=== PATIENT | female | born 1980 | race African-American/Black ===

== ENCOUNTER 2021-03-23 05:38 | Inpatient (IN) | payer OTHER ==
[~2021-03-23] VITALS: Ht 170.2 cm; Wt 95.7 kg
[~2021-03-23 05:38] MED LIST: ALBU6.7H11 INH; AZIT250T12 MT; DEXA4TAB69 MT
[2021-03-23] MEDS ORDERED: ACETAMINOPHEN 325MG TABLET PO STA (06:54)
[2021-03-23 07:29] LABS: BASOPHILS % 0.4 % (0.0-2.0); HEMATOCRIT. 36.5 % (36.0-48.0); HEMOGLOBIN. 12.5 g/dL (12.0-16.0); MEAN CORPUSCULAR HEMOGLOBIN 28.5 pg (28.0-32.0); MEAN PLATELET VOLUME 7.4 fl (7.4-10.4); MONOCYTES % 6.6 % (2.0-8.0); PLATELET 172 x1000/uL (130-400); RED CELL DISTRIBUTION WIDTH 12.7 % (11.6-14.6)
[2021-03-23 07:35] LABS: CHLORIDE 106 mEq/L (98-107)
[2021-03-23 07:44] LABS: CREATINE KINASE 131 IU/L (26-192); D-DIMER 1.29 mg/L FEU (<0.50)
[2021-03-23 08:01] LABS: BG BASE EXCESS -0.5 mmol/L (-2.0-2.0); BG CARBOXYHEMOGLOBIN 0.1 % (0.5-1.5); BG DEOXYHEMOGLOBIN 1.9 % (0.0-5.0); BG FRACTION INSPIRED OXYGEN 28; BG HCO3 ACT 22.5 mmol/L (22.0-26.0); BG METHEMOGLOBIN 0.3 % (0.0-1.5); BG OXYGEN SATURATION 98.1 % (92.0-98.5); BG OXYHEMOGLOBIN 97.7 % (94.0-97.0); BG PH 7.464 (7.350-7.450); BG PO2 105.8 mmHg (75.0-100.0); BG SAMPLE SITE LEFT RADIAL; BG VENT MODE NASAL CANNULA
[2021-03-23] MEDS ORDERED: CEFTRIAXONE 1 G PREMIX 50 ML IV ONE (08:45)
[2021-03-23] MEDS ORDERED: DEXAMETHASONE 10 MG/ML VIAL IV ONE (08:45)
[2021-03-23] MEDS ORDERED: AZITHROMYCIN 500 MG in DEXT 5% WATER 250 ML IV SCH (08:45)
[2021-03-23 09:36] LABS: HCG SCREEN NEGATIVE
[2021-03-23] MEDS ORDERED: MAGNESIUM/ALUMINUM HYDROXIDE/SIMETHICONE 30ML UDC PO PRN (10:30)
[2021-03-23] MEDS ORDERED: CLONIDINE 0.1MG TABLET PO PRN (10:30)
[2021-03-23] MEDS ORDERED: NITROGLYCERIN 0.4MG TABLET SL SL PRN (10:30)
[2021-03-23] MEDS ORDERED: ONDANSETRON HCL 4MG/2ML INJ IV PRN (10:30)
[2021-03-23] MEDS ORDERED: DOCUSATE SODIUM 100MG CAPSULE PO PRN (10:30)
[2021-03-23] MEDS ORDERED: NA PHOS,M-B/NA PHOS,DI-BA ENEMA 118ML PR PRN (10:30)
[2021-03-23] MEDS ORDERED: GUAIFENESIN 200MG/10ML SUGAR FREE UDC PO PRN (10:30)
[2021-03-23] MEDS ORDERED: ALBUTEROL 6.7GM HFA INHALER ORI PRN (10:30)
[2021-03-23] MEDS: CHOLECALCIFEROL (D3) 1000 UNIT TABLET PO SCH (11:00)
[2021-03-23] MEDS: GUAIFENESIN/DM 600MG/30MG ER TAB 12HR PO SCH ×2 (11:23→21:07)
[2021-03-23] MEDS: FAMOTIDINE 20MG TABLET PO SCH ×2 (11:24→21:07)
[2021-03-23] MEDS: ZINC SULFATE 220 MG ( 50 ) CAPSULE PO SCH (11:25)
[2021-03-23] MEDS: ENOXAPARIN 40MG/0.4ML SYR SUBCUT SCH (11:27)
[2021-03-23] MEDS: ASCORBIC ACID 500 MG TABLET PO SCH ×2 (11:28→21:07)
[2021-03-23 12:14] LABS: FOLIC ACID (FOLATE) SERUM >20 ng/mL ng/mL (>5.38)
[2021-03-23 12:24] LABS: VITAMIN B12 SERUM 1055 pg/mL (211-911)
[2021-03-23] MEDS: KETOROLAC 15MG/ML VIAL IV PRN (14:18)
[2021-03-23 18:18] LABS: CREATINE KINASE MB FRACTION < 1.0 ng/mL (0.5-3.6)
[2021-03-23 18:21] LABS: CREATINE KINASE 154 IU/L (26-192)
[2021-03-23] MEDS ORDERED: POTASSIUM CHLORIDE 20MEQ TABLET SR PO NR (19:30)
[2021-03-23] MEDS: ALBUTEROL 6.7GM HFA INHALER ORI SCH (21:15)
[2021-03-23 22:40] VITALS: BP 118/79
[2021-03-23 23:00] VITALS: BP 118/79
[2021-03-24] VITALS: BP 122/76
[2021-03-24] MEDS: ZOLPIDEM TARTRATE 5MG TABLET PO PRN (00:08)
[2021-03-24] MEDS: ACETAMINOPHEN 325MG TABLET PO PRN ×3 (00:09→20:45)
[2021-03-24] MEDS ORDERED: GABA-290 PO (01:04)
[2021-03-24 01:09] LABS: CREATINE KINASE 164 IU/L (26-192)
[2021-03-24 01:10] LABS: CREATINE KINASE MB FRACTION < 1.0 ng/mL (0.5-3.6)
[2021-03-24] MEDS: ALBUTEROL 6.7GM HFA INHALER ORI SCH ×4 (01:31→19:43)
[2021-03-24 04:00] VITALS: BP 132/83
[2021-03-24 08:00] VITALS: BP 110/76
[2021-03-24] MEDS ORDERED: AZITHROMYCIN 500 MG in DEXT 5% WATER 250 ML IV SCH (09:00)
[2021-03-24] MEDS ORDERED: CEFTRIAXONE 1 G PREMIX 50 ML IV SCH (09:00)
[2021-03-24] MEDS: KETOROLAC 15MG/ML VIAL IV PRN ×2 (09:16→20:53)
[2021-03-24] MEDS: ENOXAPARIN 40MG/0.4ML SYR SUBCUT SCH (09:16)
[2021-03-24] MEDS: CHOLECALCIFEROL (D3) 1000 UNIT TABLET PO SCH (09:17)
[2021-03-24] MEDS: FAMOTIDINE 20MG TABLET PO SCH ×2 (09:17→20:46)
[2021-03-24] MEDS: ZINC SULFATE 220 MG ( 50 ) CAPSULE PO SCH (09:17)
[2021-03-24] MEDS: ASCORBIC ACID 500 MG TABLET PO SCH ×2 (09:17→20:45)
[2021-03-24] MEDS: GUAIFENESIN/DM 600MG/30MG ER TAB 12HR PO SCH ×2 (09:18→20:45)
[2021-03-24] MEDS: DEXAMETHASONE 10 MG/ML VIAL IV SCH (09:18)
[2021-03-24] MEDS: CEFTRIAXONE 1,000 MG in DEXTROSE 5% WATER 50 ML IV SCH (11:31)
[2021-03-24 16:00] VITALS: BP 108/66
[2021-03-24 20:00] VITALS: BP 125/79
[2021-03-24] MEDS: GABAPENTIN 300MG CAPSULE PO SCH (20:45)
[2021-03-24] MEDS ORDERED: IOHEXOL-350 100 ML BOTTLE ONE (23:06)
[2021-03-25] VITALS: BP 105/66
[2021-03-25] MEDS: ALBUTEROL 6.7GM HFA INHALER ORI SCH ×5 (01:03→22:52)
[2021-03-25 04:00] VITALS: BP 109/73
[2021-03-25] MEDS: ACETAMINOPHEN 325MG TABLET PO PRN ×2 (05:23→22:47)
[2021-03-25 08:00] VITALS: BP 106/68
[2021-03-25] MEDS: ASCORBIC ACID 500 MG TABLET PO SCH ×2 (08:52→20:47)
[2021-03-25] MEDS: GUAIFENESIN/DM 600MG/30MG ER TAB 12HR PO SCH ×2 (08:52→20:46)
[2021-03-25] MEDS: CHOLECALCIFEROL (D3) 1000 UNIT TABLET PO SCH (08:52)
[2021-03-25] MEDS: DEXAMETHASONE 10 MG/ML VIAL IV SCH (08:52)
[2021-03-25] MEDS: ZINC SULFATE 220 MG ( 50 ) CAPSULE PO SCH (08:52)
[2021-03-25] MEDS: FAMOTIDINE 20MG TABLET PO SCH ×2 (08:52→20:47)
[2021-03-25] MEDS: ENOXAPARIN 40MG/0.4ML SYR SUBCUT SCH (08:53)
[2021-03-25] MEDS: CEFTRIAXONE 1,000 MG in DEXTROSE 5% WATER 50 ML IV SCH (08:53)
[2021-03-25] MEDS: AZITHROMYCIN 500 MG in DEXT 5% WATER 250 ML IV SCH (11:00)
[2021-03-25 12:00] VITALS: BP 134/72
[2021-03-25 16:00] VITALS: BP 127/76
[2021-03-25 20:00] VITALS: BP 116/81
[2021-03-25] MEDS: GABAPENTIN 300MG CAPSULE PO SCH (20:46)
[2021-03-25] MEDS: KETOROLAC 15MG/ML VIAL IV PRN (20:47)
[2021-03-25] MEDS: ZOLPIDEM TARTRATE 5MG TABLET PO PRN (22:47)
[2021-03-26] VITALS: BP 120/72
[2021-03-26 04:00] VITALS: BP 106/70
[2021-03-26] MEDS: ALBUTEROL 6.7GM HFA INHALER ORI SCH ×2 (05:07→13:08)
[2021-03-26 08:00] VITALS: BP 103/69
[2021-03-26] MEDS: AZITHROMYCIN 500 MG in DEXT 5% WATER 250 ML IV SCH (08:36)
[2021-03-26] MEDS: DEXAMETHASONE 10 MG/ML VIAL IV SCH (08:36)
[2021-03-26] MEDS: CEFTRIAXONE 1,000 MG in DEXTROSE 5% WATER 50 ML IV SCH (08:36)
[2021-03-26] MEDS: CHOLECALCIFEROL (D3) 1000 UNIT TABLET PO SCH (08:37)
[2021-03-26] MEDS: ZINC SULFATE 220 MG ( 50 ) CAPSULE PO SCH (08:37)
[2021-03-26] MEDS: GUAIFENESIN/DM 600MG/30MG ER TAB 12HR PO SCH (08:37)
[2021-03-26] MEDS: FAMOTIDINE 20MG TABLET PO SCH (08:37)
[2021-03-26] MEDS: ASCORBIC ACID 500 MG TABLET PO SCH (08:37)
[2021-03-26] MEDS: ENOXAPARIN 40MG/0.4ML SYR SUBCUT SCH (08:40)
[2021-03-26] MEDS: KETOROLAC 15MG/ML VIAL IV PRN (09:08)
[2021-03-26 12:00] VITALS: BP 118/74
[2021-03-26] MEDS ORDERED: AZIT500T3 MT (13:32)
[2021-03-26 14:08] VITALS: BP 118/74
== END 2021-03-26 15:00 | disposition home or self-care (01) | DRG 720 ==
LOC: ER 05:38 → 7WST 21:39 → ENRESERV 21:39 → ER 22:20
PROVIDERS: ADMIT Internal Medicine; ATTEND Internal Medicine
DX: A41.89 Other specified sepsis (principal); U07.1 COVID-19; J96.01 Acute respiratory failure with hypoxia; J12.82 Pneumonia due to coronavirus disease 2019; E83.51 Hypocalcemia; E87.6 Hypokalemia; M79.7 Fibromyalgia; Z88.1 Allergy status to other antibiotic agents; Z88.8 Allergy status to other drugs, medicaments and biological substances; R55 Syncope and collapse
CPT/HCPCS: 36415; 36600; 71045; 71275; 72100; 80053; 80061; 82375; 82550; 82553; 82607; 82728; 82746; 82805; 83036; 83540; 83550; 83615; 84145; 84484; 84703; 85025; 85379; 85384; 86140; 93005; 93970; 94640; 99291; J0456; J0696; J1100; J1650; J1885; J7060; Q9967

== ENCOUNTER 2021-03-29 01:37 | Inpatient (IN) | payer OTHER ==
[~2021-03-29] VITALS: Ht 170.2 cm; Wt 84.4 kg
[~2021-03-29 01:37] MED LIST changes: +AZIT500T3 MT; +GABA-290 PO
[2021-03-29] MEDS ORDERED: SODIUM CHLORIDE 0.9% 1,000 ML IV ONE (03:30)
[2021-03-29] MEDS ORDERED: VANCOMYCIN 1 G PREMIX 200 ML IV ONE (03:30)
[2021-03-29] MEDS ORDERED: LEVOFLOXACIN 750MG PREMIX 150 ML IV ONE (03:30)
[2021-03-29 04:01] LABS: BASOPHILS % 0.4 % (0.0-2.0); HEMATOCRIT. 38.3 % (36.0-48.0); HEMOGLOBIN. 13.2 g/dL (12.0-16.0); LYMPHOCYTES % 23.2 % (20.0-50.0); MEAN CORPUSCULAR HEMOGLOBIN 28.6 pg (28.0-32.0); MEAN CORPUSCULAR VOLUME 83.2 fL (81.0-99.0); MONOCYTES % 7.5 % (2.0-8.0); NEUTROPHILS % 67.9 % (40.0-76.0); PLATELET 309 x1000/uL (130-400); RED CELL DISTRIBUTION WIDTH 12.9 % (11.6-14.6)
[2021-03-29 04:09] LABS: CHLORIDE 101 mEq/L (98-107)
[2021-03-29] MEDS ORDERED: POTASSIUM CHLORIDE 20MEQ TABLET SR PO SCH (10:15)
[2021-03-29] MEDS: ENOXAPARIN 40MG/0.4ML SYR SUBCUT SCH (12:17)
[2021-03-29] MEDS ORDERED: GUAIFENESIN 200MG/10ML SUGAR FREE UDC PO PRN (12:45)
[2021-03-29] MEDS ORDERED: MAGNESIUM/ALUMINUM HYDROXIDE/SIMETHICONE 30ML UDC PO PRN (12:45)
[2021-03-29] MEDS ORDERED: HYDROCODONE/APAP 7.5/325MG 1 TAB TABLET PO PRN (12:45)
[2021-03-29] MEDS ORDERED: ENOXAPARIN 40MG/0.4ML SYR SUBCUT SCH (12:45)
[2021-03-29] MEDS ORDERED: MORPHINE SULFATE 2 MG/ML CPJ (NOT FOR IM USE) IV PRN (12:45)
[2021-03-29] MEDS ORDERED: ACETAMINOPHEN 325MG TABLET PO PRN ×2 (12:45)
[2021-03-29] MEDS ORDERED: ACETAMINOPHEN 650MG SUPP PR PRN ×2 (12:45)
[2021-03-29] MEDS ORDERED: DOCUSATE SODIUM 100MG CAPSULE PO PRN (12:45)
[2021-03-29] MEDS ORDERED: CLONIDINE 0.1MG TABLET PO PRN (12:45)
[2021-03-29] MEDS ORDERED: NA PHOS,M-B/NA PHOS,DI-BA ENEMA 118ML PR PRN (12:45)
[2021-03-29] MEDS ORDERED: DIPHENHYDRAMINE 50MG/ML VIAL IV PRN (12:45)
[2021-03-29] MEDS ORDERED: NALOXONE HCL 0.4MG/ML VIAL IV PRN (13:00)
[2021-03-29] MEDS ORDERED: CEFTRIAXONE 1 G PREMIX 50 ML IV SCH (13:00)
[2021-03-29] MEDS: HYDROCODONE/ACETAMINOPHEN 10/325MG TABLET PO PRN ×2 (15:14→22:20)
[2021-03-29 18:59] LABS: CREATINE KINASE 112 IU/L (26-192)
[2021-03-29 19:00] LABS: CREATINE KINASE MB FRACTION < 1.0 ng/mL (0.5-3.6)
[2021-03-29 19:01] LABS: T4 FREE 1.19 ng/dL (0.76-1.46)
[2021-03-29 23:17] VITALS: BP 137/83
[2021-03-30] VITALS: BP 137/83
[2021-03-30 00:11] LABS: CREATINE KINASE 110 IU/L (26-192)
[2021-03-30 00:12] LABS: CREATINE KINASE MB FRACTION < 1.0 ng/mL (0.5-3.6)
[2021-03-30 04:00] VITALS: BP 134/85
[2021-03-30 07:21] LABS: BASOPHILS % 0.5 % (0.0-2.0); EOSINOPHILS % 4.9 % (0.0-5.0); HEMATOCRIT. 38.4 % (36.0-48.0); HEMOGLOBIN. 12.8 g/dL (12.0-16.0); LYMPHOCYTES % 31.8 % (20.0-50.0); MEAN CORPUSCULAR VOLUME 83.5 fL (81.0-99.0); MEAN PLATELET VOLUME 6.8 fl (7.4-10.4); NEUTROPHILS % 52.8 % (40.0-76.0); PLATELET 395 x1000/uL (130-400); RED BLOOD CELL COUNT 4.59 mill/uL (4.2-5.4); RED CELL DISTRIBUTION WIDTH 12.6 % (11.6-14.6)
[2021-03-30] MEDS ORDERED: ASPIRIN 81MG TABLET PO SCH (09:00)
[2021-03-30 09:18] LABS: CREATINE KINASE 90 IU/L (26-192); LDL CHOLESTEROL 72 mg/dL (5-100)
[2021-03-30 09:19] LABS: CREATINE KINASE MB FRACTION < 1.0 ng/mL (0.5-3.6); HDL CHOLESTEROL 40 mg/dL (40-59)
[2021-03-30] MEDS: ENOXAPARIN 40MG/0.4ML SYR SUBCUT SCH (10:43)
[2021-03-30] MEDS ORDERED: CEFTRIAXONE 1,000 MG in DEXTROSE 5% WATER 50 ML IV SCH (11:00)
[2021-03-30] MEDS: HYDROCODONE/ACETAMINOPHEN 10/325MG TABLET PO PRN (14:26)
[2021-03-30 16:34] VITALS: BP 114/75
== END 2021-03-30 17:22 | disposition home or self-care (01) | DRG 137 ==
LOC: ER 01:37 → MICUSO 03:42 → 8WST 19:17 → 7WST 22:28
PROVIDERS: ADMIT Family Medicine; ATTEND Family Medicine
DX: U07.1 COVID-19 (principal); E87.1 Hypo-osmolality and hyponatremia; R55 Syncope and collapse; E87.6 Hypokalemia; M79.7 Fibromyalgia; E66.9 Obesity, unspecified; Z79.899 Other long term (current) drug therapy; Z68.29 Body mass index [BMI] 29.0-29.9, adult; Z90.49 Acquired absence of other specified parts of digestive tract; Z87.01 Personal history of pneumonia (recurrent)
CPT/HCPCS: 36415; 71045; 80053; 80061; 82550; 82553; 83036; 83605; 83880; 84439; 84443; 84484; 85025; 85379; 87426; 93005; 93970; 99285; J0696; J1650; J1956; J2270; J3370; J7030; J7040; J7060; U0003; U0005

== ENCOUNTER 2021-04-03 17:02 | Emergency (ER) | payer OTHER ==
[~2021-04-03] VITALS: Ht 170.2 cm; Wt 83.0 kg
[~2021-04-03 17:02] MED LIST changes: -AZIT250T12 MT
[2021-04-03] MEDS ORDERED: SODIUM CHLORIDE 0.9% 1,000 ML IV ONE (18:45)
[2021-04-03 19:39] LABS: CHLORIDE 108 mEq/L (98-107)
[2021-04-03 19:41] LABS: BASOPHILS % 0.8 % (0.0-2.0); EOSINOPHILS % 1.2 % (0.0-5.0); HEMATOCRIT. 37.5 % (36.0-48.0); HEMOGLOBIN. 12.6 g/dL (12.0-16.0); LYMPHOCYTES % 44.2 % (20.0-50.0); MEAN CORPUSCULAR HEMOGLOBIN 28.4 pg (28.0-32.0); MEAN CORPUSCULAR VOLUME 84.6 fL (81.0-99.0); MEAN PLATELET VOLUME 6.6 fl (7.4-10.4); MONOCYTES % 7.5 % (2.0-8.0); NEUTROPHILS % 46.3 % (40.0-76.0); PLATELET 435 x1000/uL (130-400); RED BLOOD CELL COUNT 4.43 mill/uL (4.2-5.4); RED CELL DISTRIBUTION WIDTH 12.6 % (11.6-14.6)
[2021-04-03] MEDS ORDERED: HYDR-3992 MT ×2 (20:18)
[2021-04-03 21:21] VITALS: BP 118/66
== END 2021-04-03 21:31 | disposition home or self-care (01) ==
LOC: ER 17:02
DX: R55 Syncope and collapse (principal); R42 Dizziness and giddiness; Z90.49 Acquired absence of other specified parts of digestive tract; Z79.899 Other long term (current) drug therapy
CPT/HCPCS: 36415; 71045; 80053; 84484; 85025; 93005; 96360; 99285; J7030; Z7610

== ENCOUNTER 2021-06-08 16:23 | Emergency (ER) | payer OTHER ==
[~2021-06-08] VITALS: Ht 170.2 cm; Wt 83.0 kg
[~2021-06-08 16:23] MED LIST changes: -ALBU6.7H11 INH; +ALBU6.7H15 INH
[2021-06-08 16:40] VITALS: BP 133/77
[2021-06-08] MEDS ORDERED: CLIN300C12 MT (18:24)
== END 2021-06-08 19:09 | disposition home or self-care (01) ==
LOC: ER 16:23
DX: L30.9 Dermatitis, unspecified (principal); L02.31 Cutaneous abscess of buttock; M79.7 Fibromyalgia; Z90.49 Acquired absence of other specified parts of digestive tract; Z79.899 Other long term (current) drug therapy
CPT/HCPCS: 99281; 99283

== ENCOUNTER 2022-05-06 13:55 | Emergency (ER) | payer OTHER ==
[~2022-05-06] VITALS: Ht 170.2 cm; Wt 88.0 kg
[~2022-05-06 13:55] MED LIST changes: +CLIN-194 MT
[2022-05-06 14:03] VITALS: BP 122/67
[2022-05-06] MEDS ORDERED: NAPR-1176 PO (16:48)
== END 2022-05-06 17:07 | disposition home or self-care (01) ==
LOC: ER 13:55
DX: M72.2 Plantar fascial fibromatosis (principal); Z90.49 Acquired absence of other specified parts of digestive tract
CPT/HCPCS: 99281